=== PATIENT | female | born 1995 | race Caucasian/White ===

== ENCOUNTER 2017-02-14 13:44 | Inpatient (IN) | payer BC ==
[~2017-02-14] VITALS: Ht 172.7 cm; Wt 85.5 kg
[2017-02-23] MEDS ORDERED: OXYTOCIN 30U/ 0.9% NaCL 500ML 500 ML IV SCH (14:24)
[2017-02-23] MEDS ORDERED: LACTATED RINGERS 1,000 ML IV SCH ×2 (14:24→14:30)
[2017-02-23] MEDS ORDERED: LACTATED RINGERS 1,000 ML IVBOLUS ONE (14:30)
[2017-02-23] MEDS ORDERED: METOCLOPRAMIDE 5 MG/ML, 2ML IV ONE (14:30)
[2017-02-23] MEDS ORDERED: SODIUM CITRATE/CITRIC ACID 30 ML UDC PO ONE (14:30)
[2017-02-23 14:46] VITALS: BP 125/81
[2017-02-23] MEDS ORDERED: METOCLOPRAMIDE 5 MG/ML, 2ML ONE (15:14)
[2017-02-23] MEDS ORDERED: NEWBORN KIT ONE (15:14)
[2017-02-23] MEDS ORDERED: SODIUM CITRATE/CITRIC ACID 30 ML UDC ONE (15:14)
[2017-02-23 15:37] LABS: HEMATOCRIT 37.4 % (34.6-47.8); HEMOGLOBIN 12.2 g/dL (11.7-16.4); WHITE BLOOD COUNT 9.2 x10^3/uL (3.4-10)
[2017-02-23] MEDS ORDERED: OXYTOCIN 30U/ 0.9% NaCL 500ML 500 ML ONE (15:47)
[2017-02-23] MEDS ORDERED: MISOPROSTOL 200 MCG TABLET PR PRN (16:30)
[2017-02-23] MEDS: OXYTOCIN 30U/ 0.9% NaCL 500ML 500 ML IV SCH (16:30)
[2017-02-23] MEDS ORDERED: ONDANSETRON 2MG/ML, 2ML IVPush PRN (16:30)
[2017-02-23] MEDS ORDERED: DIPH,PERTUSS(ACELL),TET VAC/PF NC IM-VACC PRN (16:30)
[2017-02-23] MEDS ORDERED: morphine SULFATE 10 MG/ML, 1ML IVPush PRN ×2 (16:30)
[2017-02-23] MEDS: LACTATED RINGERS 1,000 ML IV SCH ×2 (16:30→18:42)
[2017-02-23] MEDS ORDERED: CALCIUM CARBONATE 500 MG TAB.CHEW PO PRN (16:30)
[2017-02-23] MEDS ORDERED: SIMETHICONE 80 MG CHEW TAB PO PRN (16:30)
[2017-02-23] MEDS ORDERED: OXYcodone 5 MG/5 ML ORAL.SOL UDC PO PRN (16:30)
[2017-02-23] MEDS ORDERED: MEPERIDINE/PF 25MG/0.5ML IVPush PRN (16:30)
[2017-02-23] MEDS ORDERED: MEASLES,MUMPS&RUBELLA VACC/PF 0.5 ML SQ-VACC PRN (16:30)
[2017-02-23] MEDS ORDERED: morphine SULFATE 10 MG/ML, 1ML IV PRN (16:30)
[2017-02-23] MEDS ORDERED: EPHEDRINE 50 MG/ML, 1ML IVPush PRN (16:30)
[2017-02-23] MEDS ORDERED: ACETAMINOPHEN 325 MG TABLET PO PRN ×2 (16:30)
[2017-02-23] MEDS ORDERED: PLEASE ENTER ALLERGIES MC SCH ×2 (16:30)
[2017-02-23] MEDS ORDERED: FENTANYL PF 100 MCG/2ML IV PRN (16:30)
[2017-02-23] MEDS ORDERED: CEFAZOLIN 1,000 MG ONE (16:32)
[2017-02-23] MEDS ORDERED: EPHEDRINE 50 MG/ML, 1ML ONE (16:32)
[2017-02-23] MEDS ORDERED: MEPERIDINE/PF 50 MG/ML ONE (17:24)
[2017-02-23] MEDS: KETOROLAC 30 MG/1 ML IV SCH ×2 (17:30→23:23)
[2017-02-23] MEDS ORDERED: ONDANSETRON 2MG/ML, 2ML ONE (17:46)
[2017-02-23] MEDS: ONDANSETRON 2MG/ML, 2ML IV PRN (17:53)
[2017-02-23] MEDS ORDERED: OXYcodone 5 MG/5 ML ORAL.SOL UDC ONE (18:58)
[2017-02-23 19:30] VITALS: BP 122/72
[2017-02-23] MEDS: OXYcodone/APAP 5/325MG TABLET PO PRN (23:17)
[2017-02-24] VITALS: BP 98/67
[2017-02-24] MEDS: LACTATED RINGERS 1,000 ML IV SCH ×6 (00:30→22:30)
[2017-02-24] MEDS: OXYTOCIN 30U/ 0.9% NaCL 500ML 500 ML IV SCH ×3 (02:30→22:30)
[2017-02-24 04:00] VITALS: BP 101/68
[2017-02-24] MEDS: OXYcodone/APAP 5/325MG TABLET PO PRN (04:10)
[2017-02-24] MEDS: KETOROLAC 30 MG/1 ML IV SCH ×4 (05:14→22:47)
[2017-02-24 06:21] LABS: HEMATOCRIT 30.9 % (34.6-47.8); HEMOGLOBIN 10.4 g/dL (11.7-16.4); WHITE BLOOD COUNT 8.3 x10^3/uL (3.4-10)
[2017-02-24] MEDS: OXYcodone IR 5MG TABLET PO PRN ×4 (08:01→20:51)
[2017-02-24 08:15] VITALS: BP 100/66
[2017-02-24] MEDS: PRENATAL VIT/IRON/FA 1 EACH TABLET PO SCH (09:00)
[2017-02-24 11:45] VITALS: BP 108/66
[2017-02-24 15:45] VITALS: BP 113/65
[2017-02-24 19:20] VITALS: BP 101/68
[2017-02-24] MEDS: DOCUSATE 100 MG CAPSULE PO PRN (20:50)
[2017-02-25] MEDS: LACTATED RINGERS 1,000 ML IV SCH ×3 (00:30→08:30)
[2017-02-25] MEDS: OXYcodone IR 5MG TABLET PO PRN (02:43)
[2017-02-25] MEDS: KETOROLAC 30 MG/1 ML IV SCH ×2 (05:10→10:39)
[2017-02-25 07:45] VITALS: BP 108/77
[2017-02-25] MEDS: OXYTOCIN 30U/ 0.9% NaCL 500ML 500 ML IV SCH (08:30)
[2017-02-25] MEDS: DOCUSATE 100 MG CAPSULE PO PRN (09:18)
[2017-02-25] MEDS: PRENATAL VIT/IRON/FA 1 EACH TABLET PO SCH (09:18)
[2017-02-25] MEDS: OXYcodone/APAP 5/325MG TABLET PO PRN ×3 (09:18→22:01)
[2017-02-25] MEDS: ONDANSETRON 2MG/ML, 2ML IV PRN (10:39)
[2017-02-25] MEDS: IBUPROFEN 600 MG TABLET PO PRN ×2 (16:43→22:01)
[2017-02-25 20:30] VITALS: BP 107/64
[2017-02-26] MEDS: OXYcodone/APAP 5/325MG TABLET PO PRN ×3 (02:12→12:07)
[2017-02-26] MEDS: IBUPROFEN 600 MG TABLET PO PRN ×2 (04:08→10:46)
[2017-02-26 07:30] VITALS: BP 98/59
[2017-02-26] MEDS: DOCUSATE 100 MG CAPSULE PO PRN (07:54)
[2017-02-26] MEDS: PRENATAL VIT/IRON/FA 1 EACH TABLET PO SCH (07:54)
[2017-02-26] MEDS ORDERED: OXYC-302 PO (10:00)
[2017-02-26] MEDS ORDERED: IBUP-1222 PO (10:01)
== END 2017-02-26 15:40 | disposition home or self-care (01) | DRG 765 ==
LOC: LDIP 02-23 14:00 → 2NW 02-23 19:22
PROVIDERS: ADMIT Obstetrics & Gynecology; ATTEND Obstetrics & Gynecology
PROC: 10D00Z1 Extraction of Products of Conception, Low, Open Approach (ICD-10-PCS; principal; 2017-02-23)
DX: O32.2XX0 Maternal care for transverse and oblique lie, not applicable or unspecified (principal); O41.03X0 Oligohydramnios, third trimester, not applicable or unspecified; O32.0XX0 Maternal care for unstable lie, not applicable or unspecified; Z37.0 Single live birth; O99.824 Streptococcus B carrier state complicating childbirth; O48.0 Post-term pregnancy; O69.81X0 Labor and delivery complicated by cord around neck, without compression, not applicable or unspecified; Z3A.41 41 weeks gestation of pregnancy
CPT/HCPCS: 36415; 82803; 85025; 86850; 86900; J0690; J1885; J2175; J2405; J2590; J2765; J7120